=== PATIENT | female | born 1980 | race Caucasian/White ===

== ENCOUNTER → 2017-11-20 | Outpatient (CLI) | payer OTHER | END | disposition home or self-care (01) | LOC: RAD 14:20 | PROVIDERS: ATTEND Nurse Practitioner Family | DX: I26.99 Other pulmonary embolism without acute cor pulmonale (principal); M79.604 Pain in right leg; M79.605 Pain in left leg | CPT/HCPCS: 93970 ==

== ENCOUNTER 2017-12-05 21:47 | Observation (INO) | payer OTHER ==
[~2017-12-05] VITALS: Ht 170.2 cm; Wt 67.0 kg
[2017-12-05] MEDS ORDERED: RIVA15TA PO (22:20)
[2017-12-05] MEDS ORDERED: DESO1TAB72 PO (22:20)
[2017-12-05 22:38] LABS: BASOPHILS # (AUTO) 0.06 x10^3/uL (0-0.1); BASOPHILS % (AUTO) 1 % (0-1); EOSINOPHILS # (AUTO) 0.05 x10^3/uL (0-0.4); EOSINOPHILS % (AUTO) 1 % (1-7); LYMPHOCYTES # (AUTO) 2.36 x10^3/uL (1-3.4); LYMPHOCYTES % (AUTO) 27 % (22-44); MD NO; MEAN CORPUSCULAR HEMOGLOBIN 29.6 pg (27.0-34.8); MEAN CORPUSCULAR HGB CONC 34.2 g/dL (32.4-35.8); MEAN CORPUSCULAR VOLUME 86.4 fL (80-100); MEAN PLATELET VOLUME 7.2 fL (7.4-10.4); MONOCYTES # (AUTO) 0.58 x10^3/uL (0.2-0.8); MONOCYTES % (AUTO) 7 % (2-9); NEUTROPHILS # (AUTO) 5.59 x10^3/uL (1.8-6.8); NEUTROPHILS % (AUTO) 65 % (42-75); PLATELET COUNT 445 x10^3/uL (130-400); RED BLOOD COUNT 3.52 x10^6/uL (3.82-5.3); RED CELL DISTRIBUTION WIDTH 13.2 % (9.6-15.2)
[2017-12-05 22:49] LABS: ALANINE AMINOTRANSFERASE 25 U/L (12-78); ALBUMIN 3.2 g/dL (3.4-5.0); ANION GAP 6 mmol/L (5-15); CALCIUM 8.3 mg/dL (8.5-10.1); CHLORIDE 104 mmol/L (98-107); CREATININE 0.91 mg/dL (0.55-1.02)
[2017-12-05 22:53] LABS: ALKALINE PHOSPHATASE 80 U/L (45-117); BILIRUBIN,TOTAL 0.8 mg/dL (0.2-1.0); TOTAL PROTEIN 6.7 g/dL (6.4-8.2)
[2017-12-06] MEDS ORDERED: BUPIVACAINE 0.25% ONE (02:05)
[2017-12-06] MEDS ORDERED: EPINEPHRINE 1 MG/ML, 1ML ONE (02:05)
[2017-12-06] MEDS ORDERED: MIDAZOLAM 1 MG/ML, 2ML ONE (02:06)
[2017-12-06] MEDS ORDERED: FENTANYL PF 100 MCG/2ML ONE (02:06)
[2017-12-06] MEDS ORDERED: PROPOFOL 10 MG/ML, 20ML ONE (02:08)
[2017-12-06] MEDS ORDERED: LIDOCAINE GEL 2%, 5ML ONE (02:08)
[2017-12-06] MEDS ORDERED: MISOPROSTOL 200 MCG TABLET ONE ×2 (02:15→02:43)
[2017-12-06] MEDS ORDERED: METHYLERGONOVINE 0.2 MG/ML IM ONE (02:15)
[2017-12-06] MEDS ORDERED: OXYTOCIN 10 UNITS/ML, 1ML ONE (02:15)
[2017-12-06] MEDS ORDERED: SILVER NITRATE STICK TP ONE (02:16)
[2017-12-06] MEDS ORDERED: CEFAZOLIN 1,000 MG ONE (02:19)
[2017-12-06] MEDS ORDERED: TRANEXAMIC ACID 100 MG/ML, 10ML ONE ×2 (02:30)
[2017-12-06] MEDS ORDERED: DEXAMETHASONE 4 MG/ML, 1ML ONE (02:41)
[2017-12-06] MEDS ORDERED: ROCURONIUM 10MG/ML,5ML ONE (02:41)
[2017-12-06] MEDS ORDERED: SUCCINYLCHOLINE 20 MG/ML, 10ML ONE (02:41)
[2017-12-06] MEDS ORDERED: ONDANSETRON 2MG/ML, 2ML ONE (02:41)
[2017-12-06] MEDS ORDERED: NALOXONE 0.4 MG/ML, 1ML ONE (02:53)
[2017-12-06] MEDS ORDERED: FERRIC SUBSULFATE TP ONE (02:57)
[2017-12-06] MEDS ORDERED: MISOPROSTOL 200 MCG TABLET PR ONE (02:57)
[2017-12-06] MEDS ORDERED: LORazepam 2 MG/ML, 1ML IVPush PRN (03:00)
[2017-12-06] MEDS ORDERED: OXYcodone 5 MG/5 ML ORAL.SOL UDC PO PRN (03:00)
[2017-12-06] MEDS ORDERED: HYDROmorphone 1 MG/ML, 1ML IV PRN (03:00)
[2017-12-06] MEDS ORDERED: ALBUTEROL SULFATE 2.5 MG/3 ML NPPB PRN (03:00)
[2017-12-06] MEDS ORDERED: FENTANYL PF 100 MCG/2ML IV PRN (03:00)
[2017-12-06] MEDS ORDERED: PROMETHAZINE 25 MG/ML, 1ML IV PRN (03:00)
[2017-12-06] MEDS ORDERED: MIDAZOLAM 1 MG/ML, 2ML IV PRN (03:00)
[2017-12-06] MEDS ORDERED: PROMETHAZINE 12.5 MG SUPP PR PRN (03:00)
[2017-12-06] MEDS ORDERED: ONDANSETRON 2MG/ML, 2ML IV PRN (03:00)
[2017-12-06] MEDS ORDERED: MEPERIDINE/PF 25MG/0.5ML IVPush PRN (03:00)
[2017-12-06] MEDS ORDERED: LABETALOL 5MG/ML, 20ML IV PRN (03:00)
[2017-12-06] MEDS ORDERED: ONDANSETRON ODT 8 MG PO PRN (03:00)
[2017-12-06] MEDS ORDERED: hydrALAzine 20 MG/ML, 1ML IV PRN (03:00)
[2017-12-06] MEDS ORDERED: ACETAMINOPHEN 325 MG TABLET PO PRN (03:00)
[2017-12-06] MEDS ORDERED: ACETAMINOPHEN 650 MG/20.3 ML UDC ONE (03:32)
[2017-12-06] MEDS ORDERED: MEPERIDINE/PF 25MG/0.5ML ONE (03:32)
[2017-12-06] MEDS ORDERED: OXYcodone 5 MG/5 ML ORAL.SOL UDC ONE (03:32)
[2017-12-06 04:20] VITALS: BP 100/64
[2017-12-06] MEDS ORDERED: morphine SULFATE 10 MG/ML, 1ML IV PRN (05:00)
[2017-12-06] MEDS ORDERED: IBUPROFEN 600 MG TABLET PO PRN (05:00)
[2017-12-06] MEDS ORDERED: OXYcodone/APAP 5/325MG TABLET PO PRN (05:00)
[2017-12-06 07:26] VITALS: BP 105/62
[2017-12-06] MEDS ORDERED: OXYC-302 PO (07:43)
[2017-12-06] MEDS ORDERED: SENN-92 PO (07:44)
[2017-12-06] MEDS ORDERED: IBUP-1222 PO (07:45)
[2017-12-06] MEDS ORDERED: XARELTO PO ONE (08:30)
[2017-12-06] MEDS ORDERED: ENSKYCE PO SCH ×2 (08:30→09:13)
== END 2017-12-06 10:11 | disposition home or self-care (01) ==
LOC: ED 23:59 → EDIP 12-06 01:42 → 4NOR 12-06 03:57 → DCLOUNGE 12-06 09:50
PROVIDERS: ADMIT Obstetrics & Gynecology; ATTEND Obstetrics & Gynecology
DX: T83.32XA Displacement of intrauterine contraceptive device, initial encounter (principal); N93.8 Other specified abnormal uterine and vaginal bleeding; D62 Acute posthemorrhagic anemia; Z79.01 Long term (current) use of anticoagulants; Z86.711 Personal history of pulmonary embolism; Y83.8 Other surgical procedures as the cause of abnormal reaction of the patient, or of later complication, without mention of misadventure at the time of the procedure; Y92.89 Other specified places as the place of occurrence of the external cause
CPT/HCPCS: 36415; 57720; 58558; 76830; 80053; 84703; 85025; 86850; 86900; 99285; G0378; J0330; J0690; J1100; J2210; J2250; J2310; J2405; J2590; J2704; J3010; J0171; J3490

== ENCOUNTER 2017-12-12 15:43 | Day surgery (SDC) | payer OTHER ==
[~2017-12-12] VITALS: Ht 170.2 cm; Wt 67.9 kg
[~2017-12-12 15:43] MED LIST: DESO1TAB72 PO; IBUP-1222 PO; OXYC-302 PO; RIVA15TA PO; SENN-92 PO
[2017-12-12] MEDS ORDERED: ACETAMINOPHEN 500 MG TABLET PO ONE (16:00)
[2017-12-12] MEDS ORDERED: GABAPENTIN 300 MG CAPSULE PO ONE (16:00)
[2017-12-12 16:02] VITALS: BP 121/81
[2017-12-12] MEDS: LACTATED RINGERS 1,000 ML IV SCH ×2 (16:10→16:16)
[2017-12-12 16:24] LABS: HCG UR SG 1.003 (1.003-1.030)
[2017-12-12] MEDS ORDERED: FENTANYL PF 100 MCG/2ML ONE (17:29)
[2017-12-12] MEDS ORDERED: ONDANSETRON 2MG/ML, 2ML ONE (17:29)
[2017-12-12] MEDS ORDERED: PROPOFOL 50 ML ONE (17:29)
[2017-12-12] MEDS ORDERED: MIDAZOLAM 1 MG/ML, 2ML ONE (17:29)
[2017-12-12] MEDS ORDERED: DEXAMETHASONE 4 MG/ML, 1ML ONE (17:29)
[2017-12-12] MEDS ORDERED: MISOPROSTOL 200 MCG TABLET ONE (17:32)
[2017-12-12] MEDS ORDERED: OXYTOCIN 10 UNITS/ML, 1ML ONE (17:32)
[2017-12-12] MEDS ORDERED: SILVER NITRATE STICK TP ONE (17:32)
[2017-12-12] MEDS ORDERED: METHYLERGONOVINE 0.2 MG/ML IM ONE (17:33)
[2017-12-12] MEDS ORDERED: CEFAZOLIN 1,000 MG ONE (17:52)
[2017-12-12] MEDS ORDERED: EPHEDRINE 50 MG/ML, 1ML IM PRN (18:30)
[2017-12-12] MEDS ORDERED: ONDANSETRON ODT 8 MG PO PRN (18:30)
[2017-12-12] MEDS ORDERED: MEPERIDINE/PF 25MG/0.5ML IVPush PRN (18:30)
[2017-12-12] MEDS ORDERED: PROMETHAZINE 12.5 MG SUPP PR PRN (18:30)
[2017-12-12] MEDS ORDERED: PROMETHAZINE 25 MG SUPP PR PRN (18:30)
[2017-12-12] MEDS ORDERED: PROCHLORPERAZINE 5 MG/ML, 2ML IV PRN (18:30)
[2017-12-12] MEDS ORDERED: OXYcodone 5 MG/5 ML ORAL.SOL UDC PO PRN ×2 (18:30→21:00)
[2017-12-12] MEDS ORDERED: ONDANSETRON 2MG/ML, 2ML IV PRN (18:30)
[2017-12-12] MEDS ORDERED: FENTANYL PF 100 MCG/2ML IV PRN (18:30)
[2017-12-12] MEDS ORDERED: DIPHENHYDRAMINE 50 MG/ML, 1ML IVPush PRN (18:30)
[2017-12-12] MEDS ORDERED: MORPHINE SULFATE 4 MG/ML, 1ML IVPush PRN (18:30)
[2017-12-12] MEDS ORDERED: PROMETHAZINE 25 MG/ML, 1ML IV PRN (18:30)
[2017-12-12] MEDS ORDERED: MIDAZOLAM 1 MG/ML, 2ML IV PRN (18:30)
[2017-12-12] MEDS ORDERED: LACTATED RINGERS 1,000 ML IV SCH (20:50)
[2017-12-12] MEDS ORDERED: ONDANSETRON 2MG/ML, 2ML IVPush PRN (21:00)
[2017-12-12] MEDS ORDERED: ACETAMINOPHEN 325 MG TABLET PO PRN (21:00)
[2017-12-12] MEDS ORDERED: IBUPROFEN 600 MG TABLET PO SCH (21:00)
[2017-12-12] MEDS ORDERED: HYDROmorphone 2 MG/ML, 1ML IVPush PRN (21:00)
== END 2017-12-12 21:20 | disposition home or self-care (01) ==
LOC: OR 15:43 → 4NOR 19:35 → OR 21:20
PROVIDERS: ATTEND Obstetrics & Gynecology
DX: N92.0 Excessive and frequent menstruation with regular cycle (principal); N93.8 Other specified abnormal uterine and vaginal bleeding; Z79.01 Long term (current) use of anticoagulants; Z86.711 Personal history of pulmonary embolism; Z87.440 Personal history of urinary (tract) infections; Z72.89 Other problems related to lifestyle; Z79.82 Long term (current) use of aspirin; Z98.890 Other specified postprocedural states
CPT/HCPCS: 58563; 81025; J0690; J1100; J2250; J2405; J2704; J3010; J7120; J2210; J2590

== ENCOUNTER → 2018-03-31 | Outpatient (CLI) | payer OTHER ==
[2018-03-31 08:59] LABS: BASOPHILS # (AUTO) 0.04 x10^3/uL (0-0.1); BASOPHILS % (AUTO) 1 % (0-1); EOSINOPHILS % (AUTO) 0 % (1-7); LYMPHOCYTES # (AUTO) 1.81 x10^3/uL (1-3.4); LYMPHOCYTES % (AUTO) 25 % (22-44); MD MORPH REVIEW ONLY; MEAN CORPUSCULAR HEMOGLOBIN 25.5 pg (27.0-34.8); MEAN CORPUSCULAR HGB CONC 32.6 g/dL (32.4-35.8); MEAN CORPUSCULAR VOLUME 78.3 fL (80-100); MEAN PLATELET VOLUME 8.1 fL (7.4-10.4); MONOCYTES # (AUTO) 0.42 x10^3/uL (0.2-0.8); MONOCYTES % (AUTO) 6 % (2-9); NEUTROPHILS # (AUTO) 5.05 x10^3/uL (1.8-6.8); NEUTROPHILS % (AUTO) 69 % (42-75); PLATELET COUNT 283 x10^3/uL (130-400); RED BLOOD COUNT 4.74 x10^6/uL (3.82-5.3)
[2018-03-31 09:14] LABS: ANISOCYTOSIS 1+
[2018-03-31 09:15] LABS: MICROCYTOSIS 1+
[2018-03-31 09:16] LABS: <PLATELET ESTIMATE> ADEQUATE; <PLT MORPHOLOGY> NORMAL PLT MORPH
== END | disposition home or self-care (01) ==
LOC: STAR 07:49
PROVIDERS: ATTEND Obstetrics & Gynecology Female Pelvic Medicine and Reconstructive Surgery
DX: Z01.818 Encounter for other preprocedural examination (principal); N93.9 Abnormal uterine and vaginal bleeding, unspecified
CPT/HCPCS: 36415; 85025

== ENCOUNTER 2018-04-07 08:14 | Day surgery (SDC) | payer OTHER ==
[~2018-04-07] VITALS: Ht 170.2 cm; Wt 67.5 kg
[2018-04-07] MEDS ORDERED: LACTATED RINGERS 1,000 ML IV SCH ×2 (08:40→11:01)
[2018-04-07 08:51] VITALS: BP 144/87
[2018-04-07] MEDS ORDERED: SCOPOLAMINE PATCH, 1.5MG PATCH.TD72 TD ONE (09:00)
[2018-04-07] MEDS ORDERED: GABAPENTIN 300 MG CAPSULE PO ONE (09:00)
[2018-04-07] MEDS ORDERED: FAMOTIDINE 20 MG TABLET PO ONE (09:00)
[2018-04-07] MEDS ORDERED: ACETAMINOPHEN 500 MG TABLET PO ONE (09:00)
[2018-04-07] MEDS ORDERED: METOCLOPRAMIDE 10MG TABLET PO ONE (09:00)
[2018-04-07] MEDS ORDERED: BUPIVACAINE 0.25% ONE (09:02)
[2018-04-07] MEDS ORDERED: INDIGO CARMINE 0.8%, 5ML ONE (09:02)
[2018-04-07 09:27] LABS: HCG UR SG 1.023 (1.003-1.030)
[2018-04-07] MEDS ORDERED: FENTANYL PF 100 MCG/2ML IV PRN (10:00)
[2018-04-07] MEDS ORDERED: PROMETHAZINE 25 MG/ML, 1ML IV PRN (10:00)
[2018-04-07] MEDS ORDERED: ALBUTEROL SULFATE 2.5 MG/3 ML NPPB PRN (10:00)
[2018-04-07] MEDS ORDERED: HYDROmorphone 2 MG/ML, 1ML IVPush PRN (10:00)
[2018-04-07] MEDS ORDERED: OXYcodone 5 MG/5 ML ORAL.SOL UDC PO PRN (10:00)
[2018-04-07] MEDS ORDERED: MEPERIDINE/PF 25MG/0.5ML IVPush PRN (10:00)
[2018-04-07] MEDS ORDERED: THROMBIN 5,000 UNIT VIAL TP ONE (10:19)
[2018-04-07] MEDS ORDERED: FENTANYL PF 100 MCG/2ML ONE (11:21)
[2018-04-07] MEDS ORDERED: OXYcodone 5 MG/5 ML ORAL.SOL UDC ONE (11:21)
[2018-04-07] MEDS ORDERED: IBUPROFEN 600 MG TABLET PO PRN (11:30)
[2018-04-07] MEDS ORDERED: PROMETHAZINE 25 MG SUPP PR ONE (11:30)
[2018-04-07] MEDS ORDERED: ONDANSETRON 2MG/ML, 2ML IVPush PRN (11:30)
[2018-04-07] MEDS ORDERED: HYDROcodone/APAP 5/325 TABLET PO PRN (11:30)
[2018-04-07] MEDS ORDERED: KETOROLAC 30 MG/1 ML ONE (15:40)
[2018-04-07] MEDS ORDERED: DEXAMETHASONE 4 MG/ML, 1ML ONE (15:40)
[2018-04-07] MEDS ORDERED: PROPOFOL 10 MG/ML, 50ML ONE (15:40)
[2018-04-07] MEDS ORDERED: CEFAZOLIN 1,000 MG ONE (15:40)
[2018-04-07] MEDS ORDERED: PROPOFOL 10 MG/ML, 20ML ONE (15:40)
[2018-04-07] MEDS ORDERED: NEOSTIGMINE 1 MG/ML, 10ML ONE (15:40)
[2018-04-07] MEDS ORDERED: ROCURONIUM 10MG/ML,5ML ONE (15:40)
[2018-04-07] MEDS ORDERED: ONDANSETRON 2MG/ML, 2ML ONE (15:40)
[2018-04-07] MEDS ORDERED: GLYCOPYRROLATE 0.2MG/1ML, 5ML ONE (15:40)
== END 2018-04-07 13:30 | disposition home or self-care (01) ==
LOC: OUT 08:14
PROVIDERS: ATTEND Obstetrics & Gynecology Female Pelvic Medicine and Reconstructive Surgery
DX: D25.0 Submucous leiomyoma of uterus (principal); N83.8 Other noninflammatory disorders of ovary, fallopian tube and broad ligament; N94.6 Dysmenorrhea, unspecified; N92.0 Excessive and frequent menstruation with regular cycle; D64.9 Anemia, unspecified; Z85.828 Personal history of other malignant neoplasm of skin; Z98.890 Other specified postprocedural states; Z72.89 Other problems related to lifestyle
CPT/HCPCS: 58571; 81025; 88307; J0690; J1100; J1885; J2250; J2405; J2704; J2710; J3010; J3490